=== PATIENT | male | born 1950 | race Caucasian/White ===

== ENCOUNTER 2020-02-05 19:02 | Inpatient (IN) | payer OTHER, MEDICARE ==
[~2020-02-05] VITALS: Ht 172.7 cm; Wt 81.6 kg
[~2020-02-05 19:02] MED LIST: ALBIPROI INH; CALCAVITD PO; LISI5 PO; OMEP20ER PO; TERA5 PO; TRAM50 PO
[2020-02-05 19:47] LABS: BASOPHILS ABSOLUTE AUTO 0.03 K/mm3 (0.00-0.23); BASOPHILS PERCENT AUTO 0 % (0-2); EOSINOPHILS PERCENT AUTO 0 % (0-6); Hematocrit 32.2 % (37.0-53.0); IMMATURE GRAN ABSOLUTE AUTO 0.13 K/mm3 (0.00-0.10); IMMATURE GRAN PERCENT AUTO 1 % (0-1); LYMPHOCYTES ABSOLUTE AUTO 1.74 K/mm3 (0.84-5.20); LYMPHOCYTES PERCENT AUTO 11 % (21-46); MONOCYTES ABSOLUTE AUTO 1.51 K/mm3 (0.16-1.47); MONOCYTES PERCENT AUTO 10 % (4-13); Mean Corpuscular HGB 32.4 pg (26.0-34.0); Mean Corpuscular HGB Conc 34.2 g/dL (31.5-36.5); Mean Corpuscular Volume 95 fL (80-100); Mean Platelet Volume 9.3 fL (9.1-12.4); NEUTROPHILS ABSOLUTE AUTO 12.23 K/mm3 (1.96-9.15); NEUTROPHILS PERCENT AUTO 78 % (41-73); Platelet Count 172 K/mm3 (150-400); RDW Coefficient Variation 11.9 % (11.7-14.2); RDW Standard Deviation 41.2 fL (35.1-46.3); White Blood Cell Count 15.64 K/mm3 (4.00-11.30)
[2020-02-05] MEDS ORDERED: CHLO25B PO (19:57)
[2020-02-05] MEDS ORDERED: LEVSOD100 PO (19:57)
[2020-02-05] MEDS ORDERED: METO50 PO (19:58)
[2020-02-05] MEDS ORDERED: TAMS.4ER PO (19:59)
[2020-02-05 20:04] LABS: Creatine Kinase MB 19.1 ng/mL (0.0-3.6)
[2020-02-05 20:11] LABS: Creatine Kinase MB Index 1.4 (0.0-4.0)
[2020-02-05 20:13] LABS: Alanine Aminotransfer (ALT/SGP 29 U/L (12-78); Albumin, Blood 3.1 g/dL (3.4-5.0); Albumin/Globulin Ratio 1.1 (0.8-1.8); Alk Phos 50 U/L (50-136); Anion Gap 5 mmol/L (6-16); Aspartate Aminotrans (AST/SGOT 54 U/L (12-37); Bilirubin, Total 2.4 mg/dL (0.1-1.0); Blood Urea Nitrogen 57 mg/dL (8-24); Bun/Creatinine Ratio 12.1 (12.0-20.0); CO2, Blood 39 mmol/L (21-32); Calcium, Blood 13.8 mg/dL (8.5-10.1); Chloride, Blood 102 mmol/L (98-108); Creatinine, Blood 4.72 mg/dL (0.60-1.20); Globulin, Blood 2.7 g/dL (2.2-4.0); Glomerular Filtration Rate 13 (60-); Glucose, Blood 116 mg/dL (70-99); Potassium, Blood 3.3 mmol/L (3.5-5.5); Sodium, Blood 146 mmol/L (136-145); Total Protein, Blood 5.8 g/dL (6.4-8.2)
[2020-02-05 20:17] LABS: PCO2 Arterial 42.2 mmHg (35-45); PO2 Arterial 85.5 mmHg (80-100); pH Blood Arterial 7.56 (7.35-7.45)
[2020-02-05 20:26] LABS: Ethanol (Alcohol), Blood, Med <3 mg/dL
--- NOTE | 2020-02-05 21:15 | NUR ---
ADMIT PT ARRIVED TO ICU 10 AT 2049 VIA ER BED. PT IS INTUBATED AND SEDATED UPON ARRIVAL. VENT SETTINGS AC 14, TV 400, PEEP 5, FIO2 35%. PT WITH MINIMAL BROWN SECRETIONS FROM ETT. PT WITH [address]. PROTONIX INFUSING AT 10 ML/HR, SANDOSTATIN AT 25 ML/HR, AND PROPOFOL AT 25 MCG/KG/MIN. PT RESPONDS TO NOXIOUS STIMULI AND GAG IS PRESENT WITH SUCTION. OGT IN PLACE WITH DARK MAROON OUTPUT NOTED. MOONEY CATHETER FROM [facility] IN PLACE AT THIS TIME. YELLOW CLOUDY OUTPUT NOTED. SBW RESTRAINTS IN PLACE. NO FAMILY AT BEDSIDE. DAUGHTER AND SON IN [place] CALLED AND UPDATED TO PT CONDITION. THEY PLAN TO COME FROM [place] TOMORROW. VITAL SIGNS STABLE. WILL CONTINUE TO MONITOR.
[2020-02-05 21:46] LABS: PCO2 Arterial 44.4 mmHg (35-45); PO2 Arterial 69.3 mmHg (80-100); pH Blood Arterial 7.55 (7.35-7.45)
[2020-02-05 22:36] LABS: Source, Urine Catheter
--- NOTE | 2020-02-05 22:36 | NUR ---
DR NILA FANG HERE. UPDATED ON PT AND LABS. DR DOTSON TO PUT IN NEW ORDERS.
[2020-02-05 22:38] LABS: Bilirubin, Urine Neg (Neg); Blood, Urine 5+ (Neg); Glucose Qualitative, Urine Neg (Neg); Ketones, Urine 1+ (Neg); Leukocyte Esterase, Urine 3+ (Neg); Nitrite, Urine Neg (Neg); Protein, Urine 2+ (Neg); Urobilinogen, Urine NORM (Normal); pH, Urine 6.5 (5.0-8.0)
[2020-02-05 22:49] LABS: U Amphetamine Screen Not Detected; U Barbituate Screen Not Detected; U Benzodiazapine Screen DETECTED; U Buprenorphine Screen Not Detected; U Cannabinoids Screen Not Detected; U Cocaine Screen Not Detected; U Methadone Screen Not Detected; U Methamphetamine Screen Not Detected; U Opiates Screen Not Detected; U Oxycodone Screen Not Detected; U Phencyclidine Screen Not Detected; U Propoxyphene Screen Not Detected
[2020-02-05 22:50] LABS: Appearance, Urine Cloudy (Clear); Color, Urine Yellow (P-Yellow)
[2020-02-05 22:52] LABS: Bacteria Many /hpf; Squamous Epithelial Cells Not Seen /hpf (Few); White Blood Cells, Urine TNTC /hpf (0-5)
[2020-02-06 00:11] LABS: Hematocrit 32.8 % (37.0-53.0)
[2020-02-06 03:17] LABS: Hematocrit 27.7 % (37.0-53.0); Hemoglobin 9.6 g/dL (13.5-17.5); Mean Corpuscular HGB Conc 34.7 g/dL (31.5-36.5); Mean Corpuscular Volume 95 fL (80-100); Mean Platelet Volume 9.3 fL (9.1-12.4); Platelet Count 143 K/mm3 (150-400); RDW Coefficient Variation 11.9 % (11.7-14.2); RDW Standard Deviation 41.7 fL (35.1-46.3); Red Blood Cell Count 2.91 M/mm3 (4.30-5.90); White Blood Cell Count 12.15 K/mm3 (4.00-11.30)
[2020-02-06 03:39] LABS: Albumin, Blood 2.6 g/dL (3.4-5.0); Bilirubin, Total 1.4 mg/dL (0.1-1.0); Bun/Creatinine Ratio 12.7 (12.0-20.0); Calcium, Blood 12.1 mg/dL (8.5-10.1); Creatinine, Blood 4.97 mg/dL (0.60-1.20); Globulin, Blood 2.5 g/dL (2.2-4.0); Potassium, Blood 3.2 mmol/L (3.5-5.5); Total Protein, Blood 5.1 g/dL (6.4-8.2)
[2020-02-06 04:09] LABS: Creatine Kinase MB 8.8 ng/mL (0.0-3.6); Creatine Kinase MB Index 0.9 (0.0-4.0)
--- NOTE | 2020-02-06 05:55 | NUR ---
SHIFT SUMMARY NO ACUTE CHANGES THIS SHIFT. PT REMAINS INTUBATED AND SEDATED. VENT SETTINGS AC 14, TV 400, PEEP 5, FIO2 35%. VITAL SIGNS REMAIN STABLE. PT HYPERTENSIVE AT TIMES. PROPOFOL INFUSING AT 30 MCG/KG/MIN, PROTONIX 10 ML/HR, SANDOSTATIN 25 ML/HR, NS 150 ML/HR, AND NS TKO. OGT IN PLACE WITH THICK MAROON OUTPUT NOTED. MOONEY REMAINS IN PLACE WITH CLEAR YELLOW OUTPUT NOTED. SBW RESTRAINTS REMAIN IN PLACE. PT WITHDRAWS TO NOXIOUS STIMULI AND GRIMMACES WITH ORAL CARE. NO FAMILY AT BEDSIDE. WILL CONTINUE TO MONITOR AND REPORT OFF TO ONCOMING RN.
[2020-02-06 07:44] LABS: Hematocrit 28.7 % (37.0-53.0); Hemoglobin 9.8 g/dL (13.5-17.5)
--- NOTE | 2020-02-06 08:00 | NUR ---
CARE ASSUMED REPORT RECEIVED, CARE ASSUMED AT 0700 FROM JAVIER SALGADO. PT INTUBATED AND SEDATED. VITALS STABLE. PROPOFOL INFUSING FOR SEDATION. PT SHIVERING, TEMP STABLE. BLANKETS PLACED OVER PATIENT. WITHDRAWS TO PAIN IN ALL EXTREMITIES. PT'S JAW CLAMPED DOWN DURING ORAL CARE, BUT RELAXES WHEN PRESSURE IS APPLIED. SEE ICU FLOWSHEET FOR DRIPS. BILAT WRIST RESTRAINTS TO PROTECT LINES/TUBES.
--- NOTE | 2020-02-06 09:00 | NUR ---
DR. SWETHA POSADA TO BEDSIDE FOR ASSESSMENT. CONTINUE WITH CURRENT PLAN OF CARE, ADD ECHO.
--- NOTE | 2020-02-06 10:31 | NUR ---
DR. NILA DOTSON CALLED FOR UPDATED ON PATIENT. PLAN FOR SCOPE AT 1130. PT TO REMAIN INTUBATED UNTIL AFTER SCOPE.
--- NOTE | 2020-02-06 10:41 | NUR ---
Echocardiogram completed.
[2020-02-06 11:14] LABS: Base Excess Venous 12.1 mmol/L
[2020-02-06 11:19] LABS: Hematocrit 29.8 % (37.0-53.0); Hemoglobin 10.2 g/dL (13.5-17.5)
--- NOTE | 2020-02-06 11:22 | NUR ---
02/06/20 1122 Malgorzata Reynolds History, Chart, Medications and Allergies reviewed before start of procedure. MONITOR INTACT WITH CONTINUOUS PULSE OXIMETRY AND INTERMITTENT BP. 3-LEAD EKG REVIEWED WITH PHYSICIAN PRIOR TO START OF PROCEDURE. PT ON VENT, ON PROPOFOL DRIP. TRITATED BY COUNTER TENDER PRN.
[2020-02-06 12:25] LABS: CPK Creatine Kinase 912 U/L (39-308)
[2020-02-06 12:30] LABS: PCO2 Venous 55.8 mmHg (38-42); PO2 Venous 177 mmHg (38-42)
[2020-02-06 12:32] LABS: Bicarbonate Venous 32.4 mmol/L (24.0-30.0)
--- NOTE | 2020-02-06 13:23 | NUR ---
UPDATE SCOPE COMPLETE. SEE DR. DOTSON PROGRESS NOTE. PLAN FOR ABD ULTRASOUND. OCTREOTIDE DISCONTINUED. PT CONTINUES TO BE INTUBATED AND SEDATED. BP SOFT AFTER PROCEDURE, PROPOFOL TITRATED DOWN. OTHERWISE, VITALS STABLE.
--- NOTE | 2020-02-06 13:30 | NUR ---
DR. BELINDA TREVINO TO BEDSIDE FOR ASSESSMENT. DISCUSSED PT'S SHIVERING BEHAVIORS VERSES POSSIBLE POSTURING. PT CONTINUES TO WITHDRAW TO PAIN IN ALL EXTREMITIES AND GRIMACE WITH CARES. PER DR. TREVINO, PT DOES NOT APPEAR TO BE POSTURING. SEE MD PROGRESS NOTE.
--- NOTE | 2020-02-06 14:00 | NUR ---
IV STARTS/LAB DRAWS/MEDS PT'S VEINS EXTREMELY FRAGILE. 4 RN'S ATTEMPT TO GET IV START, WITH AND WITHOUT ULTRASOUND GUIDANCE. SUCCESSFUL START TO LEFT AC. MEDS GIVEN ONCE ACCESS AVAILABLE. LAB ALSO FINDING ACCESS DIFFICULT. LABS BLOOD PULLED FROM LEFT AC IV.
--- NOTE | 2020-02-06 15:12 | NUR ---
DR. TREVINO COMMUNICATION SPOKE WITH DR. TREVINO REGARDING PT'S PHOSPHOROUS LEVEL. PLAN TO WAIT FOR REPLACEMENT UNTIL THIS AFTERNOON'S CHEMISTRY COMES BACK.
[2020-02-06 15:45] LABS: Hematocrit 29.1 % (37.0-53.0); Hemoglobin 9.8 g/dL (13.5-17.5)
[2020-02-06 16:13] LABS: Bun/Creatinine Ratio 12.8 (12.0-20.0); Calcium, Blood 11.4 mg/dL (8.5-10.1); Creatinine, Blood 5.07 mg/dL (0.60-1.20); Potassium, Blood 3.4 mmol/L (3.5-5.5)
--- NOTE | 2020-02-06 16:23 | NUR ---
TUBE FEEDING VERIFIED WITH DR. DOTSON THAT NO X-RAY IS NEEDED TO CONFIRM PLACEMENT OF OG TUBE HE PLACED IT WITH CAMERA AT THE END OF SCOPE. TUBE FEEDS STARTED PER ORDERS.
--- NOTE | 2020-02-06 17:57 | NUR ---
MEDICATION RECONCILIATION/ADMISSION HISTORY/BLOOD CONSENT PRIOR TO PROCEDURE, DR. DOTSON PLACED PHONE CALL TO PT'S NEXT OF KIN, SHOAIB JACOB. PER DR. DOTSON, SHOAIB REQUEST ALL MEDICAL QUESTIONS BE DEFERRED TO HER SISTER WHO IS IN THE MEDICAL FIELD, LIZBETH WEIR AT [phone]. VERBAL CONSENT RECEIVED FOR BOTH PROCEDURE AND BLOOD CONSENT BY BOTH DR. DOTSON AND THIS RN. AT THE TIME, LIZBETH SAID SHE WOULD BE WILLING TO PROVIDE MEDICAL INFORMATION THAT SHE IS AWARE OF TO ASSIST IN COMPLETING ADMISSION INFORMATION, BUT SAYS SHE DOES NOT KEEP IN CLOSE CONTACT WITH THE PATIENT. CALL PLACED TO SHOAIB, PT'S NEXT OF KIN, LISETTE TO GET 2 RN WITNESS VERBAL RELEASE OF INFORMATION AND 2 RN WITNESS BLOOD CONSENT AND ALSO ATTEMPT TO GET ANY MEDICAL HISTORY FROM HER. NO ANSWER AND NO VOICEMAIL BOX SET UP.
--- NOTE | 2020-02-06 18:30 | NUR ---
CONVERSATION WITH PT'S FRIEND PT'S FRIEND SARAH HUERTA CALLED TO GET UPDATE ABOUT PATIENT. INFORMED HER THAT I DO NOT HAVE PERMISSION TO GIVE OUT INFORMATION. SHE WAS UNDERSTANDING, BUT WANTED TO PROVIDE SOME MEDICAL HISTORY REGARDING THE PATIENT. SHE WAS CONCERNED BECAUSE THE PATIENT HAS TAKEN LARGE DOSES OF CALCIUM AT HOME BECAUSE HE THOUGHT HE NEEDED IT AND THAT HE HAS DONE THIS BEFORE. WILL UPDATE ADMISSION HISTORY WITH INFORMATION PROVIDED FROM SARAH HUERTA.
--- NOTE | 2020-02-06 18:30 | NUR ---
FAMILY COMMUNICATION - NEXT OF KIN - CONSENT FORMS ABLE TO REACH PT'S NEXT OF KIN, SHOAIB AT [phone]. PROVIDED HER WITH UPDATE. PER SHOAIB, CONTINUE TO PROVIDE UPDATES TO LIZBETH, PT'S DAUGHTER WHO IS IN THE MEDICAL FIELD. ALSO RECEIVED CONSENT TO SPEAK TO SIVAKUMAR IF SHE CALLS. CONSENT FOR BLOOD ADMINISTRATION. SEE PAPER CHARTING FOR CONSENT FORMS. SHOAIB HAD NO ADDITIONAL INFORMATION TO ADD TO ADMISSION HISTORY BEYOND WHAT PT'S FRIEND SARAH HUERTA KNEW.
--- NOTE | 2020-02-06 19:30 | NUR ---
SUMMARY SEE PREVIOUS NOTES FOR UPDATES. NEUROLOGICALLY, PT HAS CONSISTENTLY WITHDRAWN TO PAIN IN ALL EXTREMITIES AND GRIMACES AND PULLS AWAY TO ORAL CARE AND ADL'S. PT INTERMITTENTLY SHIVERS BUT RESOLVES WITH INCREASED SEDATION WELL WARM BLANKETS. TEMP HAS BEEN STABLE. ATTEMPT TO TITRATE DOWN SEDATION TO ASSESS NEURO STATUS BUT PT BECOMES HYPERTENSIVE AND DOES NOT TOLERATE. OTHERWISE, BP HAS BEEN STABLE. HR STABLE. VENT SETTINGS UNCHANGED. PT TOLERATING VENT WELL. GOOD OUTPUT FROM MOONEY. NO BOWEL MOVEMENT. TOLERATING FEEDS WELL WITH NO RESIDUAL. BILAT WRIST RESTRAINTS THROUGHOUT DAY TO PREVENT SELF EXTUBATION.
--- NOTE | 2020-02-06 19:32 | NUR ---
BEDSIDE REPORT TO JAVIER DIAZ TO ASSUME CARE
--- NOTE | 2020-02-06 20:30 | NUR ---
INITIAL ASSESSMENT PATIENT INTUBATED AND SEDATED. PATIENT RESPONDS TO PAINFUL STIMULI WITH FACIAL GRIMACING AND MOVEMENT OF ALL EXTREMITIES. + GAG AND COUGH REFLEXES. NO SWALLOW NOTED. PATIENT APPEARS TO SHIVER OCCASIONALLY. PATIENT HAS TEMP OF 99.7 DEGREES FAHRENHEIT. EYES FIXED. PUPILS 2+ IN SIZE, REACT BRISKLY TO LIGHT. SCLERA YELLOWED, EDEMA NOTED. PATIENT SATTING 90% AND GREATER ON AC 14, TV 400, PEEP 5, AND 30% FIO2. LUNGS CLEAR IN UPPER LOBES AND DIMINISHED IN LOWER LOBES. PATIENT HAS OCCASIONAL COUGH. NO SECRETIONS NOTED WITH SUCTIONING. PATIENT IN SR, HR IN THE 70S. SBP 1-TEENS TO 170S. TRACE EDEMA NOTED TO EXREMITIES. SCDS IN PLACE. ABDOMEN MODERATELY DISTENDED, SOFT, WITH NORMOACTIVE BS NOTED. PIVOT 1.5 INFUSING AT 20 MLS/ HOUR WITH 30 ML H20 FLUSH Q4H. TF GOAL RATE OF 40 MLS/ HOUR. RESIDUAL OF 180 MLS OBTAINED AND REINSTILLED. RESIDUAL BROWN IN COLOR. DATE OF LAST BM UNKNOWN. MOONEY IN PLACE, DRAINING LIGHT YELLOW COLORED URINE WITH SEDIMENT NOTED. SKIN FLUSHED AND DRY. ABRASIONS NOTED TO BLES. SCATTERED TATTOOS T/O. PROPOFOL INFUSING AT 40 MCG/ KG/ MINUTE, 30 MM KPHOS AT 102 MLS/ HOUR AND NSKCL AT 125 MLS/ HOUR. BED LOW, CALL LIGHT IN REACH. WILL CONTINUE TO MONITOR PATIENT FREQUENTLY THROUGHOUT SHIFT.
[2020-02-06 20:59] LABS: Hematocrit 29.8 % (37.0-53.0)
--- NOTE | 2020-02-06 21:57 | NUR ---
SPOKE TO DR. TREVINO AND INFORMED OF REPEAT LABS AND REPLACEMENTS INFUSING. INFORMED OF CONTINUED HTN. INFORMED THAT PATIENT DOES HAVE PRN ORDER FOR METOPROLOL DRIP. ORDERS RECEIVED FOR SCHEDULED AND PRN METOPROLOL. WILL CONTINUE TO MONITOR.
--- NOTE | 2020-02-07 00:30 | NUR ---
PATIENT REMAINED INTUBATED AND SEDATED. PATIENT ON 35 MCG/ KG/ MINUTE OF PROPOFOL. PATIENT REMAINS RESPONDING TO PAINFUL STIMULI. PATIENT NOW AFEBRILE. PATIENT REMAINS SATTING 90% AND GREATER ON SAME VENT SETTINGS. BP LABILE. BP SOFT AFTER SCHEDULED PO LOPRESSOR GIVEN. SBP RANGING FROM 80S TO 170S. HR 60S TO 80S. RESIDUAL OF 250 MLS OBTAINED AND REINSTILLED. TF INCREASED TO GOAL RATE OF 40 MLS/ HOUR. BLOOD SUGAR OF 96. NO OTHER ACUTE CHANGES TO NOTE ON AT THIS TIME. WILL CONTINUE TO MONITOR.
[2020-02-07 04:21] LABS: Base Excess Venous 6.8 mmol/L; Bicarbonate Venous 30.1 mmol/L (24.0-30.0); PCO2 Venous 37.8 mmHg (38-42); PO2 Venous 60.9 mmHg (38-42); pH Blood Venous 7.51 (7.34-7.37)
[2020-02-07 04:48] LABS: BASOPHILS ABSOLUTE AUTO 0.02 K/mm3 (0.00-0.23); BASOPHILS PERCENT AUTO 0 % (0-2); EOSINOPHILS ABSOLUTE AUTO 0.19 K/mm3 (0.00-0.68); EOSINOPHILS PERCENT AUTO 2 % (0-6); Hematocrit 28.5 % (37.0-53.0); Hemoglobin 9.5 g/dL (13.5-17.5); IMMATURE GRAN ABSOLUTE AUTO 0.05 K/mm3 (0.00-0.10); IMMATURE GRAN PERCENT AUTO 1 % (0-1); LYMPHOCYTES ABSOLUTE AUTO 2.15 K/mm3 (0.84-5.20); LYMPHOCYTES PERCENT AUTO 20 % (21-46); MONOCYTES ABSOLUTE AUTO 1.01 K/mm3 (0.16-1.47); MONOCYTES PERCENT AUTO 9 % (4-13); Mean Corpuscular HGB 33.1 pg (26.0-34.0); Mean Corpuscular HGB Conc 33.3 g/dL (31.5-36.5); Mean Platelet Volume 9.8 fL (9.1-12.4); NEUTROPHILS ABSOLUTE AUTO 7.48 K/mm3 (1.96-9.15); NEUTROPHILS PERCENT AUTO 69 % (41-73); Platelet Count 148 K/mm3 (150-400); RDW Coefficient Variation 12.2 % (11.7-14.2); RDW Standard Deviation 44.3 fL (35.1-46.3); Red Blood Cell Count 2.87 M/mm3 (4.30-5.90)
[2020-02-07 04:49] LABS: Mean Corpuscular Volume 99 fL (80-100)
--- NOTE | 2020-02-07 05:00 | NUR ---
PROPOFOL PLACED ON SB FOR OVER AN HOUR. PATIENT OPENING EYES SPONTANEOUSLY BUT FAILS TO FOLLOW ANY SIMPLE COMMANDS. PATIENT DID PASS WEAN. PATIENT BACK ON AC SETTINGS. MODERATE AMOUNT OF THICK, BROWN SPUTUM BEING SUCTIONED FROM THE ETT. PATIENT SHIVERING CONTINUOUSLY WHEN SEDATION OFF. PATIENT DIAPHORETIC. TEMP OF 100.2 DEGREES FAHRENHEIT THIS AM. HR 60S TO 80S. SBP UP TO 213 WITH SEDATION VACATION. PATIENT GIVEN PRN LOPRESSOR. TF RESIDUAL OF 270 MLS. 250 MLS REINSTILLED. TF PLACED ON HOLD FOR TIME BEING. PATIENT BACK ON PROPOFOL AT 20 MCG/ KG/ MINUTE.
[2020-02-07 05:06] LABS: Albumin, Blood 2.5 g/dL (3.4-5.0); Albumin/Globulin Ratio 0.9 (0.8-1.8); Bilirubin, Total 0.7 mg/dL (0.1-1.0); Bun/Creatinine Ratio 13.4 (12.0-20.0); Calcium, Blood 10.4 mg/dL (8.5-10.1); Creatinine, Blood 4.99 mg/dL (0.60-1.20); Globulin, Blood 2.8 g/dL (2.2-4.0); Magnesium, Blood 2.4 mg/dL (1.6-2.4); Phosphorus, Blood 2.7 mg/dL (2.5-4.9); Potassium, Blood 3.7 mmol/L (3.5-5.5); Total Protein, Blood 5.3 g/dL (6.4-8.2)
--- NOTE | 2020-02-07 06:37 | NUR ---
SHIFT SUMMARY PATIENT REMAINED INTUBATED. PATIENT REMAINED ON PROPOFOL FOR SEDATION BESIDES DURING AM SEDATION VACATION AND WEAN. PATIENT RESPONDING TO PAINFUL STIMULI WHEN SEDATED. PATIENT UNABLE TO FOLLOW SIMPLE COMMANDS WHEN OFF OF SEDATION. PATIENT OFF SEDATION FOR OVER AN HOUR. PATIENT LOCALIZING MOVEMENTS TO ALL EXTREMITIES. PATIENT SHIVERS OCCASIONALLY WHEN ON SEDATION AND SHIVERS CONSTANTLY WHEN SEDATION ON SB. PATIENT HAD TMAX OF 100.2 DEGREES FAHRENHEIT. PATIENT GIVEN PRN FENTANYL FOR SIGNS OF PAIN. PATIENT PASSED WHEN THIS AM. OTHERWISE PATIENT SATTED 90% AND GREATER ON AC 14, TV 400, PEEP 5 AND 30% FIO2. MODERATE AMOUNT OF THICK, BROWN SECRETIONS BEING SUCTIONED FROM ETT AT END OF SHIFT. PATIENT REMAINED IN SR, HR 60S TOS 80S. BP LABILE. SBP 80S TO 213. SBP HIGHEST WHEN ON SEDATION VACATION. BP SOFT AFTER SCHEDULED LOPRESSOR GIVEN FOR SBP 160S TO 170S. PATIENT DID NOT HAVE BM THIS SHIFT. TF INCREASED TO GOAL RATE OF 40 MLS/ HOUR. TF WAS PLACED ON HOLD FOR A LITTLE OVER AN HOUR FOR HIGH RESIDUALS. RESIDUALS RANGED FROM 180 TO 270 MLS THIS SHIFT. MOONEY DRAINED ADEQUATE AMOUNT OF LIGHT YELLOW URINE WITH SEDIMENT NOTED. PATIENT DIAPHORETIC THIS AM. PATIENT REPOSITIONED THROUGHOUT SHIFT. PROPOFOL CURRENTLY AT 30 MCG/ KG/ HOUR, NS KCL AT 125 MLS/ HOUR. PATIENT RECEIVING ROCEPHIN FOR ANTIBIOTIC. PATIENT HAD COMPLETE BED BATH THIS SHIFT. PATIENT APPEARS COMFORTABLE AT THIS TIME. BED LOW, CALL LIGHT IN REACH. WILL BE GIVING REPORT TO ONCOMING DAY SHIFT NURSE SHORTLY.
--- NOTE | 2020-02-07 08:00 | NUR ---
CARE ASSUMED REPORT RECEIVED, CARE ASSUMED AT 0700 FROM JAVIER DIAZ. PT INTUBATED AND SEDATED. WITHDRAWS TO PAIN BUT DOES NOT FOLLOW ANY COMMANDS. GAG AND COUGH PRESENT. OPENS EYES SPONTANEOUSLY ON OCCASION. PT CONTINUES TO INTERMITTENTLY SHIVER. LOW GRADE FEVER PRESENT. PT PROVIDED WITH COOL WASHCLOTH ON FACE. BP/HR STABLE. 02 SAT 90'S ON AC 14/400/30/5. TF AT GOAL, SEE I/O FOR RESIDUALS. BOWEL SOUNDS ACTIVE. NO BM AT THIS TIME. MOONEY SECURED AND DRAINING.
--- NOTE | 2020-02-07 08:35 | NUR ---
HEAD CT RESULTS FROM [place] ATTEMPTED TO LOCATE PT'S HEAD CT THAT WAS COMPLETED IN [facility]. CALLED RADIOLOGY AND WAS TOLD THE DISC IS HERE BUT CAN'T BE UPLOADED UNTIL SATURDAY, SO IF THE PHYSICIAN WANTS TO VIEW THEY NEED TO GO DOWN. NO REPORT AVAILABLE. CALLED [facility], SPOKE WITH JASPREET IN ER WHO SAID THE REPORT REMARKED ON ATROPHY AND CHRONIC SINUS SYNDROME. SAID SHE WILL FAX REPORT OVER. WILL PLACE ON CHART.
--- NOTE | 2020-02-07 08:41 | NUR ---
DR. TREVINO COMMUNICATION UPDATED DR. 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 PER DR. TREVINO, KEEP PATIENT ON SEDATION UNTIL SHE IS ABLE TO ASSESS AND MAKE PLAN.
--- NOTE | 2020-02-07 09:28 | NUR ---
DR. SWETHA VICTOR TO BEDSIDE FOR ASSESSMENT. D/C PRN METOPROLOL DRIP AND CONTINUE WITH PO AND PUSHES PRN. OTHERWISE, NO NEW ORDERS AT THIS TIME.
--- NOTE | 2020-02-07 09:54 | NUR ---
DR. BELINDA TREVINO TO BEDSIDE FOR ASSESSMENT. PT TURNED TO PRESSURE SUPPORT BY DR. TREVINO. PROPOFOL TO 15 MCG/KG/MIN PER DR. TREVINO REQUEST. FENTANYL FOR PAIN, METOPROLOL FOR ELEVATED BLOOD PRESSURE.
--- NOTE | 2020-02-07 14:33 | NUR ---
UPDATE SPOKE WITH DR. TREVINO REGARDING PT'S PERSISTENT HYPERTESION. EXPLAINED THAT IT IMPROVES TEMPORARILY AFTER PAIN MEDICATION ADMINISTRATION BUT DOES NOT STAY NORMAL. NEW ORDER FOR HYDRALAZINE, AND PER DR. TREVINO IF HYPERTENSION CONTINUES OK TO INCREASE PROPOFOL TO 30 MCG/KG/HR IN ADDITION TO FENTANYL WHILE PT ON SPONATENOUS IF PATIENT TOLERATES. IF NOT, OK TO PUT PT BACK ON ASSIST CONTROL SETTINGS.
--- NOTE | 2020-02-07 14:40 | NUR ---
UPDATE REGARDLESS OF PAIN MEDICATION, HYDRALAZINE AND METOPROLOL, PT CONTINUES TO BE HYPERTENSIVE. PT MUCH MORE AWAKE, LOOKING AROUND ROOM, AND MOVES ARMS/LEGS SPONTANEOUSLY. FOLLOWING SOME COMMANDS. PROPOFOL INCREASED TO 25 MCG/KG/MIN DUE TO PERSISTENT HYPERTENSION. RT JUAN NOTIFIED OF PLAN AND WILL CONTINUE TO CLOSELY MONITOR PT'S RATE AND TIDAL VOLUMES AND ASSESS FOR NEED TO BE PLACED BACK ON ASSIST CONTROL.
--- NOTE | 2020-02-07 16:31 | NUR ---
VENT SETTINGS PT PLACED BACK ON ASSIST CONTROL AC 16/30/5 BY RESPIRATORY THERAPIST PER DR. BELINDA HARRIS.
--- NOTE | 2020-02-07 18:54 | NUR ---
SUMMARY SEE PREVIOUS NOTES FOR UPDATES THROUGHOUT DAY. PT NOT ABLE TO CONSISTENTLY FOLLOW COMMANDS, AND BP CONTINUES TO BE LABILE, BUT IMPROVES MOST SIGNIFICANTLY WITH PAIN MANAGEMENT. PT BACK ON ASSIST CONTROL AND SEDATED WITH PROPOFOL AT 35 MCG/KG/KR AND BP MUCH IMPROVED. OTHERWISE, VITALS STABLE. GOOD OUTPUT FROM MOONEY TODAY. TOLERATING TUBE FEEDS, SEE I/O FOR RESIDUALS. ABD SOFT. BOWEL SOUNDS HYPOACTIVE. NO BOWEL MOVEMENT TODAY. BILAT WRIST RESTRAINTS TO PREVENT SELF-EXTUBATION. PT NOTED TO HAVE INCREASED SPONTANEOUS MOVEMENT WITH REPOSITIONING, REACHING FOR ETT, BUT WEAK OVERALL. REPORT TO JAVIER DIAZ TO ASSUME CARE AT THIS TIME.
--- NOTE | 2020-02-07 20:15 | NUR ---
INITIAL ASSESSMENT PATIENT INTUBATED AND ON SEDATION. PATIENT RESPONDS TO PAINFUL STIMULI AND NURSING CARE WITH FACIAL GRIMACING AND SLIGHT MOVEMENT OF ALL EXTREMITIES. + GAG AND COUGH. NO SWALLOW NOTED. SCERA YELLOWED AND EDEMEATOUS. DOLL'S EYES NOTED. PATIENT HAS NO SIGNS OF PAIN AT THIS TIME. PATIENT HAS TEMP OF 100.0 DEGREES FAHRENHEIT. PATIENT SATTING 90% AND GREATER ON VENT SETTINGS OF AC 14, TV 400, PEEP 5, AND 30% FIO2. LUNGS CLEAR IN UPPER LOBES, DIMINISHED IN LOWER LOBES. PATIENT HAS OCCASIONAL COUGH, PRODUCING MODERATE AMOUNTS OF THICK, BROWN SPUTUM. PATIENT IN SR, HR IN THE 80S. SBP 1-TEENS TO 180S. TRACE EDEMA NOTED TO BLES. 1+ EDEMA NOTED TO BILAT HANDS. SCDS IN PLACE. ABODMEN MODERATELY DISTENDED, SOFT, WITH NORMOACTIVE BS NOTED. OG IN PLACE. PIVOT 1.5 TF INFUSING AT GOAL RATE OF 45 MLS/ HOUR WITH 30 ML H20 FLUSH Q4H. 70S MLS RESIDUAL OBTAINED AND REINSTILLED. DATE OF LAST BM UNKNOWN. MOONEY IN PLACE DRAINING YELLOW COLORED URINE WITH SEDIMENT NOTED. SCATTERED TATTOOS NOTED. SKIN FLUSHED AND DRY. ABRASION NOTED TO BLES. ULCER NOTED TO TONGUE. ETT BEING REPOSITIONED Q2H WHEN TURNED. PROPOFOL INFUSING AT 35 MCG/ KG/ MINUTE, 1/2 NS INFUSING AT 100 MLS/ HOUR. BED LOW, CALL LIGHT IN REACH. PATIENT APPEARS COMFORTABLE AT THIS TIME. WILL CONTINUE TO MONITOR PATIENT FREQUENTLY THROUGHOUT SHIFT.
--- NOTE | 2020-02-08 | NUR ---
PATIENT REMAINS INTUBATED AND ON SEDATION. PATIENT AFEBRILE. BLOOD SUGAR OF 96. HR 60S TO 70S. BP STABLE. RESIDUAL OF 160 OBTAINED AND REINSTILLED. NO OTHER ACUTE CHANGES TO NOTE ON AT THIS TIME. PATIENT APPEARS WITHOUT PAIN OR DISCOMFORT. WILL CONTINUE TO MONITOR.
[2020-02-08 04:36] LABS: Bun/Creatinine Ratio 16.5 (12.0-20.0); Calcium, Blood 9.2 mg/dL (8.5-10.1); Creatinine, Blood 4.25 mg/dL (0.60-1.20); Magnesium, Blood 2.3 mg/dL (1.6-2.4); Phosphorus, Blood 1.9 mg/dL (2.5-4.9); Potassium, Blood 3.3 mmol/L (3.5-5.5)
[2020-02-08 04:40] LABS: Thyroid Stimulating Hormone 0.755 uIU/mL (0.360-4.800)
--- NOTE | 2020-02-08 05:35 | NUR ---
SEDATION PLACED ON STANDBY FOR SEDATION VACATION AND WEAN. VSS. TF RESIDUAL OF 100 MLS OBTAINED AND REINSTILLED. NO OTHER ACUTE CHANGES TO NOTE ON AT THIS TIME.
[2020-02-08 06:08] LABS: HBSAG SCREEN Negative (Negative); HEP B CORE AB, TOT Negative (Negative); HEP C VIRUS AB <0.1 (0.0-0.9)
--- NOTE | 2020-02-08 06:57 | NUR ---
SHIFT SUMMARY PATIENT REMAINED INTUBATED AND SEDATED. PATIENT REMAINED RESPONDING TO VERBAL OR PAINFUL STIMULI. PATIENT HAD HOUR LONG SEDATION VACATION THIS AM; PATIENT DID NOT FOLLOW COMMANDS OR TRACK WITH EYES WHEN OFF SEDATION. PATIENT DID PASS AM WEAN. PATIENT HAD TMAX OF 100.0 DEGREES FAHRENHEIT. PATIENT GIVEN PRN FENTANYL FOR SIGNS OF PAIN. PATIENT REMAINED SATTING 90% AND GREATER ON AC 14, TV 400, PEEP 5, FIO2 30%. SPUTUM THICK AND BROWN AT BEGINNING OF SHIFT. SPUTUM HAS BECOME MORE THIN AND CLEAR THIS AM. PATIENT REMAINED IN SR, HR 60S TO 80S. SBP LOW 100S TO 180S. PATIENT GIVEN PRN LOPRESSOR OT THIS AM DURING SEDATION VACATION. NO BM THIS SHIFT. TF REMAINS AT GOAL. RESIDUALS 70 TO 160 MLS. MOONEY DRAINED LARGE AMOUNT OF YELLOW URINE WITH SEDIMENT NOTE. NO CHANGE IN SKIN. PATIENT REPOSITIONED T/O SHIFT. PROPOFOL INFUSING AT 20 MCG/ KG/ MINUTE. PATIENT HAD BED BATH THIS SHIFT. 30 MM K PHOS INFUSING FOR POTASSIUM OF 3.3 AND PHOS OF 1.9 THIS AM. NO SIGNS OF DISCOMFORT AT THIS TIME. BED LOW, CALL LIGHT IN REACH. REPORT WILL BE GIVEN TO [facility] DAY SHIFT NURSE SHORTLY.
[2020-02-08 07:41] LABS: BASOPHILS ABSOLUTE AUTO 0.02 K/mm3 (0.00-0.23); BASOPHILS PERCENT AUTO 0 % (0-2); EOSINOPHILS ABSOLUTE AUTO 0.41 K/mm3 (0.00-0.68); EOSINOPHILS PERCENT AUTO 4 % (0-6); IMMATURE GRAN ABSOLUTE AUTO 0.05 K/mm3 (0.00-0.10); IMMATURE GRAN PERCENT AUTO 1 % (0-1); LYMPHOCYTES PERCENT AUTO 16 % (21-46); MONOCYTES PERCENT AUTO 9 % (4-13); Mean Corpuscular HGB Conc 32.1 g/dL (31.5-36.5); Mean Platelet Volume 10.4 fL (9.1-12.4); NEUTROPHILS ABSOLUTE AUTO 6.82 K/mm3 (1.96-9.15); NEUTROPHILS PERCENT AUTO 70 % (41-73); Platelet Count 146 K/mm3 (150-400); RDW Coefficient Variation 12.3 % (11.7-14.2); RDW Standard Deviation 46.3 fL (35.1-46.3); Red Blood Cell Count 2.73 M/mm3 (4.30-5.90)
[2020-02-08 07:42] LABS: Mean Corpuscular Volume 103 fL (80-100)
[2020-02-08 07:53] LABS: Albumin, Blood 2.3 g/dL (3.4-5.0); Albumin/Globulin Ratio 0.8 (0.8-1.8); Bilirubin, Direct 0.4 mg/dL (0.0-0.3); Bilirubin, Indirect 0.2 mg/dL (0.1-0.7); Bilirubin, Total 0.6 mg/dL (0.1-1.0); Globulin, Blood 2.9 g/dL (2.2-4.0); Total Protein, Blood 5.2 g/dL (6.4-8.2)
--- NOTE | 2020-02-08 09:35 | NUR ---
CARE ASSUMED REPORT RECEIVED, CARE ASSUMED AT 0700 FROM JAVIER DIAZ. PT INTUBATED AND SEDATED. INITIALLY, PT WITHDRAWING TO PAIN ONLY. TURNED PROPOFOL DOWN TO 10 MCG/KG/MIN, AND WITHIN AN HOUR PATIENT OPENING EYES, LOOKING AROUND, FOLLOWING COMMANDS WITH BOTH LEFT AND RIGHT HANDS. PT IS PROFOUNDLY WEAK. PT DOES NOT ANSWER YES/NO QUESTIONS. TREMOR NOTED, BUT OTHERWISE UNABLE TO ASSESS FULL CIWA. HOWEVER, PT HYPERTENSIVE, DOES NOT IMPROVE WITH FENTANYL OR HYDRALAZINE. PT HAS BEEN MINIMALLY RESPONSIVE SINCE ARRIVAL TO [facility], HESITANT TO RE-SEDATE PATIENT WITH PROPOFOL OR GIVE ATIVAN FOR POTENTIAL ETOH WITHDRAW SO THAT NEURO STATUS CAN BE ESTABLISHED PT DOING WELL RESPIRATORY GREY AND MAY BE POSSIBLE CANDIDATE FOR EXTUBATION ONCE FOLLOWING COMMANDS, PER DR. TREVINO YESTERDAY. SPOKE WITH DR. CLAYTON, THE LEAF TIER FOR THE DAY, AND PLAN FOR ASSESSMENT LATER TODAY WHEN AVAILABLE. PT RESEDATED WITH PROPOFOL. BLOOD PRESSURE IMPROVED AFTER RE-SEDATED. CUSHION MAKER HAND SHOWS NORMAL SINUS RHYTHM WITH RATE IN 60'S-70'S. LOW GRADE FEVER PRESENT. PT TOLERATING TUBE FEEDS, SEE I/O FOR RESIDUALS. ABD TENDER BUT SOFT WITH PALPATION, INCREASED GRIMACE NOTED. BILAT WRIST RESTRAINTS TO PREVENT SELF EXTUBATION PT DOES REACH TOWARDS TUBE DURING TURNS.
--- NOTE | 2020-02-08 13:04 | NUR ---
DR. MATILDE CLAYTON TO BEDSIDE FOR ASSESSMENT. PT SEDATED AT TIME OF ASSESSMENT. DISCUSSED NEURO STATUS, HYPERTENSION, BOWEL SOUNDS, POSSIBLE CIWA AND PAIN MANAGEMENT. PER DR. CLAYTON, KEEP PATIENT SEDATED TODAY. REPEAT WEAN AND SEDATION VACATION TOMORROW PER USUAL ON EPIC CUPID ANALYST AND WHEN DAY SHIFT TOMORROW HAS PT ON SEDATION VACATION, HE WANTS TO BE NOTIFIED FOR ASSESSMENT AT THAT TIME. NURSING NOTIFY ORDER PLACED.
--- NOTE | 2020-02-08 18:30 | NUR ---
SUMMARY SINCE PREVIOUS NOTE, PT HAS REMAINED INTUBATED AND SEDATED. VENT SETTINGS UNCHANGED. RR 20'S, SPO2 90'S. PT HAS HAD LARGE AMOUNT OF THICK, HAZEL MUCOUS SECRETIONS DRIPPING FROM NOSE. SUCTIONED AT LEAST EVERY HOUR THROUGHOUT DAY. SPOKE WITH DR. CLAYTON, ORDER TO SEND FOR BACTERIAL CULTURE. WILL COLLECT WHEN ADEQUATE SPECIMEN AVAILABLE. LARGE AMOUNT OF CLEAR ORAL AND ETT SECREETIONS ALSO SUCTIONED. PT CONTINUES TO WITHDRAW TO PAIN, MOVES HEAD BACK AND FORTH WITH ORAL CARE. ORAL CAVITY CONTINUES TO HAVE FOUL ODOR AND ULCERATION, FREQUENT REPOSITIONING OF ETT. BLOOD PRESSURE STABLE WITH PER TUBE METOPROLOL. PT HAS REQUIRED MUCH LESS FENTANYL TODAY. HR STABLE IN 70'S-80'S. CONTINUES WITH LOW GRADE FEVER. TUBE FEED CONTINUES, RESIDUALS MINIMAL. INCREASED FLUSH FOR ELEVATED SODIUM PER DR. CLAYTON. NO BOWEL MOVEMENT TODAY. GOOD OUTPUT FROM MOONEY CATHETER. SEE ASSESSMENTS/FLOWSHEETS.
--- NOTE | 2020-02-08 19:24 | NUR ---
REPORT TO JAVIER ESPARZA TO ASSUME CARE
--- NOTE | 2020-02-08 21:27 | NUR ---
ASSUMED CARE OF PT AT 1900. BEDSIDE REPORT DONE, PT UNABLE TO PARTICIPATE HE IS INTUBATED, SEDATED. NO FAMILY PRESENT. I-TRACE PERFORMED, FLUIDS INFUSING THROUGH RIGHT UA, MOONEY DRAINING, PATENT, SECURED. VENT SETTINGS AC 14/ TV 400/ PEEP 5/ 30% FIO2. RT TURNED FIO2 DOWN TO 25%, PT TOLERATING WELL.
[2020-02-09 03:47] LABS: Hematocrit 28.5 % (37.0-53.0); Hemoglobin 9.3 g/dL (13.5-17.5); Mean Corpuscular HGB 32.7 pg (26.0-34.0); Mean Corpuscular HGB Conc 32.6 g/dL (31.5-36.5); Mean Platelet Volume 9.7 fL (9.1-12.4); Platelet Count 190 K/mm3 (150-400); RDW Coefficient Variation 12.3 % (11.7-14.2); RDW Standard Deviation 45.5 fL (35.1-46.3); Red Blood Cell Count 2.84 M/mm3 (4.30-5.90); White Blood Cell Count 9.77 K/mm3 (4.00-11.30)
[2020-02-09 03:48] LABS: Mean Corpuscular Volume 100 fL (80-100)
[2020-02-09 04:04] LABS: BAND PERCENT MAN 1 % (0-8); BASOPHILS PERCENT MAN 0 % (0-2); Bun/Creatinine Ratio 19.3 (12.0-20.0); Calcium, Blood 9.1 mg/dL (8.5-10.1); Creatinine, Blood 3.73 mg/dL (0.60-1.20); EOSINOPHILS ABSOLUTE MAN 0.48 K/mm3 (0.00-0.68); EOSINOPHILS PERCENT MAN 5 % (0-6); LYMPHOCYTES ABSOLUTE MAN 2.14 K/mm3 (0.84-5.20); LYMPHOCYTES PERCENT MAN 22 % (21-46); MONOCYTES ABSOLUTE MAN 0.58 K/mm3 (0.16-1.47); MONOCYTES PERCENT MAN 6 % (4-13); Magnesium, Blood 2.2 mg/dL (1.6-2.4); NEUTROPHILS ABSOLUTE MAN 6.54 K/mm3 (1.96-9.15); Phosphorus, Blood 2.8 mg/dL (2.5-4.9); Potassium, Blood 3.6 mmol/L (3.5-5.5); SEG NEUTROPHILS PERCENT MAN 66 % (41-73); TOTAL CELLS COUNTED 100
[2020-02-09 05:23] LABS: PCO2 Arterial 39.9 mmHg (35-45); pH Blood Arterial 7.47 (7.35-7.45)
--- NOTE | 2020-02-09 05:48 | NUR ---
Wean trial attempted. Pt opens eyes spontaneously, and moves limbs, but does not follow commands. Pt's blood pressures also began to creep up. After trial, pt began fighting vent and grimacing, dose fentanyl given to good effect. Stool softeners given to pt, but no increase in bowel sounds and no flatus. Pt vent settings now AC 14/ tv 400/ peep 5/ fio2 25%.
--- NOTE | 2020-02-09 08:30 | NUR ---
ASSESSMENT- PT SEDATED WITH PROPOFOL AT 25 MCG/KG/MIN. MINIMAL RESPONSE TO VERBAL STIMULUS, ABLE TO MOVE FEET MIMINALLY TO COMMANDS. ORALLY INTUBATED, TUBE SECURE. COPIOUS ORAL SECRETIONS. LUNGS CLEAR. NSR, BP STABLE. PIV X 4 INTACT. NS TKO X 2 FOR IVPB. TUBE FEEDING VIA NGT INTACT-RESIDUAL 100 CC-REPLACED. UO VIA MOONEY. SCDS ON. REPOSITIONED. BILATERAL WRIST RESTRAINTS TO MAINTAIN LIFE SUPPORT TUBE, DOES REACH UP FOR TUBE.
--- NOTE | 2020-02-09 10:15 | NUR ---
PROPOFOL ON HOLD FOR POSSIBLE EXTUBATION. NO DISTRESS. TOLERATING CPAP
--- NOTE | 2020-02-09 11:33 | NUR ---
PT WITH EYES OPEN, BLINKS EYES IN RESPONSE TO VERBAL COMMANDS, WEAKLY MOVES EXTEMITIES. WILL CONTINUE TO MONITOR FOR EXTUBATION PARAMETERS. TOLERATING CPAP 10/5 WITH GOOD TIDAL VOLUMES WITH RATE OF 28 BPM. BP IMPROVED AFTER RX WITH HYDRALAZINE AND LOPRESSOR. LUNGS COARSE, THICK SECRETIONS SUCTIONED FROM ETT-SPUTUM SENT. COPIOUS ORAL SECRETIONS.
--- NOTE | 2020-02-09 14:00 | NUR ---
PT REMAINS LETHARGIC, OPENS EYES, QUESTIONABLE RESPONSE TO ANY DIRECTIONS. TOLERATING CPAP SETTINGS ON VENT. COPIOUS ORAL SECRETIONS
--- NOTE | 2020-02-09 16:30 | NUR ---
PT GRIMACING, RX WITH PAIN MEDICATION WITH IMPROVEMENT. NSR. NEURO-OPENS EYES TO VERBAL STIMULUS, UNABLE TO SQUEEZE HANDS. KEEPS EXTREMITIES STIFF. BATH DONE, LINEN CHANGE. TOLERATING TUBE FEEDING
[2020-02-09 17:01] LABS: Bun/Creatinine Ratio 20.4 (12.0-20.0); Calcium, Blood 8.6 mg/dL (8.5-10.1); Creatinine, Blood 3.28 mg/dL (0.60-1.20); Potassium, Blood 3.3 mmol/L (3.5-5.5)
--- NOTE | 2020-02-09 19:18 | NUR ---
LABS REPORTED TO DR CLAYTON. PT AWAKE, NEURO UNCHANGED. NSR. BP IMPROVED AFTER MEDS
--- NOTE | 2020-02-09 20:00 | NUR ---
ASSUMPTION OF CARE: PT VENTED, NOT SEDATED. EYES WILL OPEN WITH VERBAL STIMULI. ABLE TO WIGGLE TOES AND SQUEEZE WITH L HAND. 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 IN SR. PT IS HYPERTENSIVE WITH SBP IN THE 150-170S. HR IN THE 80S. VENT SETTINGS ARE 14/400/PEEP 5/ FIO2 25%. SPO2 >90%. PT HAS MOD AMT OF THICK, HAZEL SECRETIONS. OGT IN PLACE WITH CONTINUOUS TF IN PLACE. ZERO RESIDUAL AT THIS TIME. TF AT GOAL RATE. PT HAS 4 PIV-BILAT AC AND BUA. AC IVS INF. BUA IVS PATENT AND SL. D5NS INF AT 75MLS/HR. WILL CONTINUE TO MONITOR
[2020-02-10 03:28] LABS: BASOPHILS ABSOLUTE AUTO 0.03 K/mm3 (0.00-0.23); BASOPHILS PERCENT AUTO 0 % (0-2); EOSINOPHILS ABSOLUTE AUTO 0.74 K/mm3 (0.00-0.68); EOSINOPHILS PERCENT AUTO 7 % (0-6); Hematocrit 29.6 % (37.0-53.0); Hemoglobin 9.6 g/dL (13.5-17.5); IMMATURE GRAN ABSOLUTE AUTO 0.05 K/mm3 (0.00-0.10); IMMATURE GRAN PERCENT AUTO 1 % (0-1); LYMPHOCYTES ABSOLUTE AUTO 1.87 K/mm3 (0.84-5.20); LYMPHOCYTES PERCENT AUTO 19 % (21-46); MONOCYTES ABSOLUTE AUTO 0.97 K/mm3 (0.16-1.47); MONOCYTES PERCENT AUTO 10 % (4-13); Mean Corpuscular HGB 32.5 pg (26.0-34.0); Mean Corpuscular HGB Conc 32.4 g/dL (31.5-36.5); Mean Corpuscular Volume 100 fL (80-100); Mean Platelet Volume 9.2 fL (9.1-12.4); NEUTROPHILS ABSOLUTE AUTO 6.47 K/mm3 (1.96-9.15); NEUTROPHILS PERCENT AUTO 64 % (41-73); Platelet Count 202 K/mm3 (150-400); RDW Coefficient Variation 12.7 % (11.7-14.2); RDW Standard Deviation 46.3 fL (35.1-46.3); Red Blood Cell Count 2.95 M/mm3 (4.30-5.90); White Blood Cell Count 10.13 K/mm3 (4.00-11.30)
[2020-02-10 03:46] LABS: Albumin, Blood 2.3 g/dL (3.4-5.0); Albumin/Globulin Ratio 0.6 (0.8-1.8); Bilirubin, Total 0.5 mg/dL (0.1-1.0); Bun/Creatinine Ratio 19.9 (12.0-20.0); Calcium, Blood 8.3 mg/dL (8.5-10.1); Creatinine, Blood 3.17 mg/dL (0.60-1.20); Globulin, Blood 3.7 g/dL (2.2-4.0); Magnesium, Blood 1.9 mg/dL (1.6-2.4); Phosphorus, Blood 2.8 mg/dL (2.5-4.9); Potassium, Blood 3.3 mmol/L (3.5-5.5)
--- NOTE | 2020-02-10 04:55 | NUR ---
CALL PLACED TO DR TURNER RE POTASSIUM LEVEL 3.3 AND SODIUM LEVEL 153. ORDERS RECEIVED FOR KCL 40MEQ IV X 1.
[2020-02-10 05:28] LABS: PCO2 Arterial 36.9 mmHg (35-45); PO2 Arterial 70.5 mmHg (80-100); pH Blood Arterial 7.48 (7.35-7.45)
--- NOTE | 2020-02-10 06:21 | NUR ---
SUMMARY: PT RESTED MAJORITY OF NIGHT. PROPOFOL WAS RESTARTED AT 2014 AND TITRATED UP TO 25MCG. PT TOLERATED WELL. A SEDATION VACATION AND WEAN WAS PERFORMED. PROPOFOL WAS TURNED OFF AND RT CAME TO BEDSIDE TO WEAN. PT TOLERATED BOTH WELL. PER RT HE WAS ABLE TO SQUEEZE HANDS. PROPOFOL IS CURRENTLY BACK ON AT 25MCG. LUNG SOUNDS COARSE. PT STILL HAVING MODERATE AMT OF SECRETIONS. SPO2 >90%. PT SBP 100-120 MAJORITY OF SHIFT. DURING WEAN SBP UP TO 170S. OGT IN PLACE WITH CTF AT GOAL. PT HAS 4 PIVS. D5W INFUSING AT 75MLS/HR. MOONEY IN PLACE DRAINING CLEAR YELLOW URINE. WILL PASS REPORT TO ONCMING SHIFT
--- NOTE | 2020-02-10 07:36 | NUR ---
ASSUMED CARE OF PATIENT. SEDATED. VENT SETTINGS: AC 14 400 PEEP 5 25% FIO2, TOLERATING WELL. PROPOFOL PLACED ON STAND BY FOR SEDATION VACATION. HOB @ 30 DEGREES. ETT 8.0, CANNOT SEE MARKINGS AT TEETH.
--- NOTE | 2020-02-10 09:57 | NUR ---
PT SUCCESSFULLY EXTUBATED AT 0947, PLACED ON 2 L/MIN NC. ALERT, FOLLOWING DIRECTIONS. RESTRAINTS REMOVED AT 0948. EDUCATED PT TO DEEP BREATHE AND COUGH, USE SUCTION FOR SECRETIONS, AND HOW TO USE CALL LIGHT, TO KEEP MOVING ARMS. NODDED UNDERSTANDING.
--- NOTE | 2020-02-10 10:38 | NUR ---
PT ON 2 L/MIN NC, LUNGS LESS COARSE THAT PRIOR ASSESSMENT, PROD COUGH BUT IS SWALLOWING SECRETIONS. O2 SAT 97%, RR 22-28. KNOWS HIS NAME AND , BUT IS UNAWARE OF HIS LOCATION. VOICE IS HOARSE. WILL DO BEDSIDE SWALLOW EVAL SOON PT'S VOICE IS CLEARER.
--- NOTE | 2020-02-10 11:36 | NUR ---
RATE OF IVF INCREASED TO 100 ML/HR PER ORDER.
--- NOTE | 2020-02-10 13:11 | NUR ---
REASSESSMENT: PT ALERT, ORIENTED TO SELF AND BIRTHDAY. VOICE IS HOARSE. SPRAY MACHINE LOADER COUGH, O2 @ 2 L/MIN NC WITH SATS > 92%. ENCOURAGING HIM TO COUGH OFTEN. ALL IV'S ARE EITHER INFILTRATED OR OUT DATED; TRIED TWICE, UNABLE TO PLACE, ASKED ANOTHER RN TO START NEW IV. SMALL SMEAR OF STOOL. GOOD URINE OUTPUT. SKIN IS INTACT. SINUS RHYTHM, HR 80'S, HYPERTENSIVE 170-190/80-90'S, UNABLE TO GIVE LABETOLOL AT THIS TIME. WILL ATTEMPT SWALLOW EVAL.
--- NOTE | 2020-02-10 13:49 | NUR ---
TITRATED OXYGEN OFF, MAINTAINING O2 SAT > 92%. SPOKE TO DR. CLAYTON IN PERSON, RECEIVED VERBAL ORDER FOR BD PROTOCOL FOR BILATERAL UPPER LOBE WHEEZING.
--- NOTE | 2020-02-10 16:15 | NUR ---
REASSESSMENT: PT ALERT, KNOWS NAME AND , STILL UNSURE OF HIS LOCATION OR HOW HE GOT HERE. VOICE STILL HOARSE, RN BEDSIDE SWALLOW EVAL NOT ATTEMPTED PT'S ATTENTION WANDERS AND HE EXHIBITED NO REAL SWALLOW REFLEX WITH ORAL CARE OR MOUTH SWABS. LUNGS CTAB, FAINT EXP WHEEZES IN BILAT LL. ON ROOM AIR, ENCOURAGED TO COUGH DURING RN ROUNDING. SCD'S ON, IS RESISTANT TO POSITION CHANGES, BECOMES QUITE RIGID AND PUSHES AGAINST THE SIDE RAILS. MOONEY DRAINING ADEQUATE URINE. DENIED PAIN.
--- NOTE | 2020-02-10 18:10 | NUR ---
SHIFT SUMMARY: REMAINS ALERT, BUT STATED HE IS TIRED. IS HYPERTENSIVE; LABETOLOL IV GIVEN AFTER NEW IV PLACED, DR. CLAYTON ORDERED CLONIDINE PATCH, WHICH WAS PLACED ON HIS L UPPER ARM. WANTS TO GET OOB; TOLD HIM THAT HE IS WEAK AND I WOULD LIKE TO HAVE PT AND OT WORK WITH HIM FIRST; VERBALIZED UNDERSTANDING. T MAX 100.1, RESOLVED WITHOUT INTERVENTION. BILATERAL UPPER EXTREMITIES HAVE JERKING MOTIONS AT TIMES, NOT TREMULOUS. DENIES DOUGHERTY, A/V HALLUCINATIONS, PAIN. REMAINS NPO. WOULD BENEFIT FROM PT/OT, PERHAPS STATUS CHANGE TOMORROW.
--- NOTE | 2020-02-10 20:00 | NUR ---
ASSUMPTION OF CARE: PT AWAKE IN ROOM. ORIENTED TO NAME, , AND IS ABLE TO STATE HE IS IN THE HOSPITAL. SPEECH IS SLOW AND SLURRED. HE APPEARS TO BE HALLUCINATING. DENIES PAIN AT THIS TIME. HE IS FEBRILE WITH A TEMP OF 100.0. HYPERTENSIVE WITH SBP IN THE 150-170S. PT HAS CLONIDINE PATCH TO R SHOULDER. PT EXTUBATED DURING DAYSHIFT AND IS CURRENTLY ON RA. SPO2 >90%. LUNG SOUNDS ARE SLIGHTLY WHEEZY. OGT IS OUT, BUT PT IS NPO D/T CONFUSION. MOONEY IN PLACE DRAINING CLEAR YELLOW URINE. POWERGLIDE IN RUSS INFUSING WITH D5W. BED IN LOWEST POSITION. WILL CONTINUE TO MONITOR
[2020-02-11 03:36] LABS: BASOPHILS ABSOLUTE AUTO 0.03 K/mm3 (0.00-0.23); BASOPHILS PERCENT AUTO 0 % (0-2); EOSINOPHILS ABSOLUTE AUTO 0.77 K/mm3 (0.00-0.68); EOSINOPHILS PERCENT AUTO 7 % (0-6); Hematocrit 28.2 % (37.0-53.0); Hemoglobin 9.3 g/dL (13.5-17.5); IMMATURE GRAN ABSOLUTE AUTO 0.05 K/mm3 (0.00-0.10); IMMATURE GRAN PERCENT AUTO 0 % (0-1); LYMPHOCYTES ABSOLUTE AUTO 1.69 K/mm3 (0.84-5.20); LYMPHOCYTES PERCENT AUTO 15 % (21-46); MONOCYTES ABSOLUTE AUTO 1.17 K/mm3 (0.16-1.47); MONOCYTES PERCENT AUTO 10 % (4-13); Mean Corpuscular HGB 32.9 pg (26.0-34.0); Mean Corpuscular Volume 100 fL (80-100); Mean Platelet Volume 8.9 fL (9.1-12.4); NEUTROPHILS ABSOLUTE AUTO 7.53 K/mm3 (1.96-9.15); NEUTROPHILS PERCENT AUTO 67 % (41-73); Platelet Count 211 K/mm3 (150-400); RDW Coefficient Variation 12.3 % (11.7-14.2); RDW Standard Deviation 45.1 fL (35.1-46.3); Red Blood Cell Count 2.83 M/mm3 (4.30-5.90); White Blood Cell Count 11.24 K/mm3 (4.00-11.30)
[2020-02-11 03:52] LABS: Bun/Creatinine Ratio 19.6 (12.0-20.0); Calcium, Blood 7.8 mg/dL (8.5-10.1); Creatinine, Blood 2.6 mg/dL (0.60-1.20); Magnesium, Blood 1.6 mg/dL (1.6-2.4); Phosphorus, Blood 2.9 mg/dL (2.5-4.9); Potassium, Blood 3.3 mmol/L (3.5-5.5)
--- NOTE | 2020-02-11 05:51 | NUR ---
CALL PLACED TO DR TURNER RE K+ LAB VALUE OF 3.3. AWAITING RETURN CALL.
--- NOTE | 2020-02-11 05:56 | NUR ---
ORDERS RECEIVED FROM DR. TURNER TO REPLACE K+ WITH KCL 40MEQ IV X1 NOW.
--- NOTE | 2020-02-11 06:10 | NUR ---
SHIFT SUMMARY: PT SLEPT ON AND OFF T/O SHIFT. WHILE AWAKE HE WAS OCCASIONALLY HALLUCINATING (STATED AT ONE POINT HE WAS TRYING TO CATCH A SPIDER HE WAS SEEING) AND CONFUSED. OTHERWISE PT HAS BEEN ABLE TO STATE NAME, , AND THAT HE IS IN THE HOSPITAL . IN SR. PT HYPERTENSIVE T/O SHIFT. HYDRALAZINE GIVEN WITH LITTLE EFFECT. LABETOLOL GIVEN WITH GOOD EFFECT. SBP INITIALLY DROPPED TO 120S. IS CURRENTLY IN THE 170S. ANOTHER DOSE OF LABETOLOL GIVEN AT 0620. WILL REASSESS. PT ALSO HAS CLONIDINE PATCH TO R UPPER ARM. HR HAS STAYED IN THE 80S. REMAINS NPO D/T CONFUSION. PT HAD A SMALL BM. MOONEY IN PLACE DRAINING CLEAR, YELLOW URINE. ABOUT 1850 ML OUT. POWERGLIDE IN RUSS INFUSING WITH D5W AT 100MLS/HR. WILL PASS REPORT TO ONCOMING SHIFT.
--- NOTE | 2020-02-11 09:30 | NUR ---
ATTEMPTED BEDSIDE SWALLOW EVAL. PT ABLE TO MAINTAIN ATTENTION AND REMAINED UPRIGHT AT 90 DEGREES FOR THE TEST. ABLE TO SWALLOW WATER BY THE TEASPOON, BUT WAS UNABLE TO HOLD CUP AND RAISE IT TO HIS LIPS TO DRINK CONTINUOUSLY. IS TREMULOUS AND HAS POOR FINE MOTOR SKILLS IN BOTH HANDS. WILL NOTIFY PROVIDER DURING ROUNDS. PT IS CURRENTLY NPO.
--- NOTE | 2020-02-11 12:18 | NUR ---
PHYSICAL THERAPY IN TO WORK WITH PATIENT.
--- NOTE | 2020-02-11 13:40 | NUR ---
SPOKE TO PT'S DAUGHTER CESARIO, GAVE UPDATE ON PT CONDITION AND ADVISED THAT PT IS NOW MEDICAL STATUS AND WILL BE TRANSFERRED TO MEDICAL FLOOR WHEN BED BECOMES AVAILABLE. SHE ASKED ABOUT D/C PLANNING. PT LIVES ALONE IN A TRAILER AND SHE STATED THAT SHE AND HER SISTER HAVE BEEN VERY WORRIED ABOUT HIM LIVING ALONE. ADVISED HER THAT D/C PLANNING WILL BE WORKING WITH HIM WHEN HE GETS CLOSER TO D/C.
--- NOTE | 2020-02-11 13:58 | NUR ---
AUGUSTINE FROM [facility] HERE FOR RUDY RODRIGUEZ.
--- NOTE | 2020-02-11 15:12 | NUR ---
NOTIFIED PCU LINE BUILDER THAT PT IS NOW MEDICAL TELE STATUS FOR REMOTE MONITORING PURPOSES.
--- NOTE | 2020-02-11 15:14 | NUR ---
[facility].
--- NOTE | 2020-02-11 17:04 | NUR ---
REPORT GIVEN TO Venu SEVERINO ON MEDICAL FLOOR. PT TRANSPORTED VIA HIS BED TO ROOM 345 AT 1645. BELONGINGS WITH PT; TOLD RECEIVING RN THAT PT'S WALLET, HOME MEDICATIONS, AND WATCH ARE IN THE PAPER BAG, SEALED WITH ETTA AND LABELED WITH PT LABEL. PT'S EYEGLASSES ARE WITH HIM.
--- NOTE | 2020-02-11 17:07 | NUR ---
SHIFT SUMMARY ICU TRANSFER THIS EVENING. PATIENT DENIES PAIN, NAUSEA, AND SHORTNESS OF BREATH. PATIENT SETTLED INTO ROOM AND WATCHING TV AT THIS TIME. CALL LIGHT IN REACH.
--- NOTE | 2020-02-12 04:37 | NUR ---
ACCESS LEAD SUMMARY Patient average around 14 on CIWA Scale while awake. 2mg ativan IV given for score of 17, when patient was really bothered with hallucinations. Patient actually slept for approx 3 hours. Still tremulouw, and hallucinating, patient is now questioning everything he sees. (which is very upsetting to him). Strong dry barking cough4-5 times every hour. Patient is not wearing 02, or we would add humidity to sooth his throat. will pass on concern to day RN.
[2020-02-12 09:52] LABS: Hemoglobin 9.6 g/dL (13.5-17.5); Mean Corpuscular HGB 32.1 pg (26.0-34.0); Mean Corpuscular HGB Conc 33.1 g/dL (31.5-36.5); Mean Corpuscular Volume 97 fL (80-100); Mean Platelet Volume 8.8 fL (9.1-12.4); Platelet Count 232 K/mm3 (150-400); RDW Coefficient Variation 12.1 % (11.7-14.2); Red Blood Cell Count 2.99 M/mm3 (4.30-5.90)
[2020-02-12 10:08] LABS: Bun/Creatinine Ratio 19.4 (12.0-20.0); Calcium, Blood 7.4 mg/dL (8.5-10.1); Creatinine, Blood 2.16 mg/dL (0.60-1.20); Magnesium, Blood 2.3 mg/dL (1.6-2.4); Potassium, Blood 3.3 mmol/L (3.5-5.5)
--- NOTE | 2020-02-12 16:20 | NUR ---
SHIFT SUMMARY PATIENT DENIES PAIN, NAUSEA, AND SHORTNESS OF BREATH. PATIENT SEEN BY SPEECH, PT, AND OT. PATIENT'S DIET ADVANCED TO PUREE AND THICKENED LIQUIDS, MEDICATIONS CRUSHED. PATIENT ABLE TO BEAR WEIGHT WITH 2 ASSIST BUT IS STILL VERY UNSTEADY. PATIENT'S CIWA'S RANGING FROM 3-5 TODAY. CALL LIGHT IN REACH.
--- NOTE | 2020-02-13 03:50 | NUR ---
SHIFT SUMMARY ADMITTED FOR UGIB. FULL CODE. PHYSICAL THERAPY RECOMMENDS DC TO A SNF. PT IS WEAK AND SHAKEY TO STAND- 2 ASSIST. PT LIVES ALONE. A MOONEY IS IN PLACE FOR RETENTION. HE IS STILL HALLUCINATING THIS SHIFT. BUT HE CAN MAKE HIS NEEDS KNOWN AND CALLS APPROPRIATELY. TELEMETRY: NSR @ 97 BPM. CIWA SCORES RANGE 4-5 FOR ME. EYE-HAND COORDINATION PROBLEMS CAUSE HIM TO SPILL HIS CUPS. PUREE DIET, NECTAR THICK FLUIDS, MEDS CRUSHED IN APPLESAUCE. HX: COPD, PANCREATITIS, ETOH, HYPERNATREMIA, LIVER FAILURE, BPH, GOITER.
--- NOTE | 2020-02-13 15:18 | NUR ---
PATIENT HAD AN UNEVENTFUL SHIFT. VITALS HAVE BEEN STABLE. DENIES PAIN AND DISCOMFORT. MOONEY CONTINUES TO DRAIN TO GRAVITY. NO ACUTE CHANGES TO REPORT OF AT THIS TIME.
--- NOTE | 2020-02-14 03:39 | NUR ---
SHIFT SUMMARY A/O, ABLE TO MAKE NEEDS KNOWN. ELIM IRA. COOPERATIVE WITH CARE. CALLS AND ANSWERS QUESTIONS APPROPRIATELY. NO C/O PAIN/DISCOMFORT. APPEARED TO REST OFF AND ON. HAD SMALL BM THAT WAS HARD. PG TO RUSS FLUSHED; REMINDED TO KEEP ARM AT REST. MEDS CRUSHED IN APPLESAUCE; TOLERATED WELL. MOONEY SECURED AND DRAINING TO GRAVITY. NO ACUTE CHANGES NOTED OVERNIGHT. VSS. BED IN LOWEST POSITION; ALARM ON. CALL LIGHT AND BELONGINGS WITHIN REACH. WCTM.
--- NOTE | 2020-02-14 15:43 | NUR ---
THE PATIENT HAS BEEN PLEASANT WITHOUT ANY CONCERNS TO REPORT OF. HE WAS GIVEN 40MEQ OF PO POTASSIUM THIS MORNING D/T KCL LEVEL OF 3.3 AND FLOMAX IN HOPES TO EVENTUALLY REMOVE HIS MOONEY. THE PATIENTS VITALS ARE STABLE. HE CALLS FOR STAFF ASSIST NEEDED. WILL CONTINUE TO MONITOR AND PROVIDE CARE NEEDED.
--- NOTE | 2020-02-15 04:06 | NUR ---
SHIFT SUMMARY A/O, ABLE TO MAKE NEEDS KNOWN. COOPERATIVE WITH CARE. [place]UROK. CALLS AND ANSWERS QUESTIONS APPROPRIATELY. C/O DISCOMFORT WITH NAUSEA TO LOWER ABDOMEN; MEDICATED PER EMAR. ATTEMPTED TO HAVE A BM; NOT SUCCESSFUL. DID NOT APPEAR TO REST MUCH THIS SHIFT. MOONEY SECURED AND DRAINING TO GRAVITY. VSS/AFEBRILE. NO OTHER ACUTE CHANGES NOTED. BED REMAINS IN LOWEST POSITION; ALARM ON. CALL LIGHT AND BELONGINGS WITHIN REACH. WCTM. REPORT TO ONCOMING RN.
[2020-02-15 09:18] LABS: Bun/Creatinine Ratio 14.7 (12.0-20.0); Calcium, Blood 6.1 mg/dL (8.5-10.1); Creatinine, Blood 1.97 mg/dL (0.60-1.20); Potassium, Blood 3.4 mmol/L (3.5-5.5)
--- NOTE | 2020-02-15 12:37 | NUR ---
OX3, PLEASANT. FOLLOWS INSTRUCTIONS. 1 PERSON CGA FOR ADL'S. NO SIGNS OF BLEEDING. DENIES CP OR OTHER PAINS. SAYS NO DIZZINESS OR NAUSEA TODAY. NASAL SPRAY HAS BEEN STARTED FOR C/O HEAD CONGESTION. ORAL POTASSIUM HAS NIRAJ GIVEN FOR K+ LEVEL 3.4.
--- NOTE | 2020-02-15 16:32 | NUR ---
HE HAS BEEN WATCHING TV. HIS ONLY REQUEST IS A PEPSI WITH DINNER TONIGHT.
--- NOTE | 2020-02-15 18:41 | NUR ---
HE JUST SHOWERED. HE SAYS THE NASAL SPRAY HELPED HIM. NO OTHER COMPLAINTS TODAY.
--- NOTE | 2020-02-16 04:51 | NUR ---
SHIFT SUMMARY: VSS. TEMP 99.4-99.6. A/OX3. COMMUNICATES NEEDS. AMB W/ 1 ASSIST AND FWW. CONT OF STOOL. FC PATENT AND DRAINING CLEAR STRAW COLORED URINE. NO C/O PAIN. REPORTS ONGOING "SORE THROAT". TOLERATING PO INTAKE WELL. LARGE, SOFT BM TONIGHT. ABD SOFT, NONTENDER, NONDISTENDED. NO ACUTE CHANGES OVERNIGHT. WILL CONT TO MONITOR.
--- NOTE | 2020-02-16 13:53 | NUR ---
THE SERVICE CONSULTANT SPOKE WITH HIM ABOUT DISCHARGE PLANS. NOW HE SAYS HE FEELS LIKE HE'S HAVING A PANIC ATTACK. HE NEEDS ASSIST TO WALK FOR SAFETY. 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 HE NEEDED ME TO OPEN THE MOONEY TO DRAIN 2 HRS AND 20 MIN AFTER I CLAMPED IT. 250 MLS WERE DRAINED. I RE-CLAMPED AT 1220. WILL LEAVE IT CLAMPED FOR 3 HRS UNLESS HE GETS UNCOMFORTABLE AGAIN.
--- NOTE | 2020-02-16 14:19 | NUR ---
HE FEELS BETTER BECAUSE WE LOOKED AND FOUND HIS WALLET WITH HIS MEDICARE INFO.HE ALSO HAS HIS WATCH. WILL LOCK UP HIS WALLET IF HE DOES NOT GET DISCHARGED TO REHAB TODAY.
--- NOTE | 2020-02-16 17:00 | NUR ---
THE JOURNALISM TEACHER IS TRYING TO SET UP REHAB FOR PETER. NO BED AVAILABLE YET. SHE IS LOOKING OVER AT THE COAST AND HERE LOCALLY. WE FOUND TODAY THAT HIS WALLET IS HERE. IT IS SEALED IN AN ENVELOPE AND SECURITY WILL PICK IT UP TO PUT IN THE SAFE. BLADDER TRAINING WILL BE DONE AT DINNER TIME. AFTER DRAINING HIS BLADDER, I WILL DC HIS MOONEY. PG IS PATENT IN HIS RUSS. HE HAS NO COMPLAINTS OTHER THAN BEING ANXIOUS ABOUT HIS FUTURE.
--- NOTE | 2020-02-17 04:13 | NUR ---
SHIFT SUMMARY ASSUMED CARE PF PT AT 1900. PT IS A/O X3 BUT IS FORGETFUL AT TIMES, FOR EXAMPLE, PT FORGOT WHERE HIS PHONE AND WATCH WERE, PT C/O TINGLING IN HIS TOES, PT STATES THAT HE FORGETS TO MONTION IT TO DOCTORS AND HE ONLY FEELS IT WHEN HE IS SITTING DOWN AND RESTING. HEART SOUNDS IRREGULAR, LUNG SOUNDS CLEAR, PT DENIES CP/SOB AT THIS TIME. PT URINATED ABOUT 300CC TWICE TONIGHT, PT WAS CONTINET T/O THE NIGHT. PT SLEPT MOST OF THE NIGHT EXCEPT FOR WHEN HE AOKE WITH A DRY NOSE, MEDICATED PER EMAR. PT STATES THAT HE WANTS TO GO HOME BJ. CALL LIGHT IN REACH, BED IN LOWEST POSTION, WILL CONTINUE TO MONITOR UNTIL DAYSHIFT NURSE ARRIVES.
--- NOTE | 2020-02-17 08:15 | NUR ---
PT QUITE PLEASANT COOP A/O X3. REPORTS SOME FORGETFULNESS ON OCCATION. 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 H/R REG, NO MURMER NOTED. NO TELE. NO PACER NOTED. LUNGS CLEAR, RESP EASY, UNLABORED. ON R/A. TALKING FULL SENTENCES WITH EASE. BT X4 LAST BM THIS AM. VOIDS PER URINAL. STANDS TO URINATE . 1 ASST WITH FWW TO BATHROOM. BED IN LOW POSITIOIN, CALL LITE IN REACH, BED ALARM ON FOR IMPULSIVITY
[2020-02-17 08:28] LABS: Bun/Creatinine Ratio 13.1 (12.0-20.0); Creatinine, Blood 1.83 mg/dL (0.60-1.20); Potassium, Blood 3.6 mmol/L (3.5-5.5)
--- NOTE | 2020-02-17 17:35 | NUR ---
PT PLEASANT COOP TODAY. NO C/O PAIN. HAS BEEN COOP WITH PT/OT. PENDING SNF PLACEMENT. BED IN LOW POSITION, CALL LITE IN REACH, CALLS APPROP
--- NOTE | 2020-02-18 03:56 | NUR ---
BUSINESS UNIT LEADER SUMMARY PT A/O X3 WITH SOME FORGETFULNESS. DENIES PAIN, SOB, NAUSEA. VSS. NO ACUTE CHANGES. PLEASANT AND COOPERATIVE. USES BEDSIDE URINAL. CALL LIGHT WITHIN REACH. BED IN LOWEST POSITION.
[2020-02-18 17:11] LABS: BASOPHILS ABSOLUTE AUTO 0.03 K/mm3 (0.00-0.23); BASOPHILS PERCENT AUTO 0 % (0-2); EOSINOPHILS ABSOLUTE AUTO 0.19 K/mm3 (0.00-0.68); EOSINOPHILS PERCENT AUTO 1 % (0-6); Hematocrit 28.2 % (37.0-53.0); Hemoglobin 9.6 g/dL (13.5-17.5); IMMATURE GRAN ABSOLUTE AUTO 0.06 K/mm3 (0.00-0.10); IMMATURE GRAN PERCENT AUTO 0 % (0-1); LYMPHOCYTES ABSOLUTE AUTO 1.82 K/mm3 (0.84-5.20); LYMPHOCYTES PERCENT AUTO 10 % (21-46); MONOCYTES ABSOLUTE AUTO 1.08 K/mm3 (0.16-1.47); MONOCYTES PERCENT AUTO 6 % (4-13); Mean Corpuscular HGB 32.5 pg (26.0-34.0); Mean Corpuscular Volume 96 fL (80-100); Mean Platelet Volume 8.6 fL (9.1-12.4); NEUTROPHILS ABSOLUTE AUTO 14.91 K/mm3 (1.96-9.15); NEUTROPHILS PERCENT AUTO 82 % (41-73); Platelet Count 318 K/mm3 (150-400); RDW Coefficient Variation 12.4 % (11.7-14.2); RDW Standard Deviation 41.8 fL (35.1-46.3); Red Blood Cell Count 2.95 M/mm3 (4.30-5.90); White Blood Cell Count 18.09 K/mm3 (4.00-11.30)
--- NOTE | 2020-02-18 17:52 | NUR ---
SHIFT SUMMARY PT AWAKE AT START OF SHIFT, WATCHING TV. PER REPORT, PT A&O, BUT FORGETFUL. PT WAITING SNF PLACEMENT D/T LOW GRADE TEMP AT TIMES. PT'S TEMP THRU OUT THE DAY WNL'S, BUT THEN THIS AFTERNOON INCREASED; SEE CHART. PT BECOMING CHILLED WITH SHAKES AND COUGH, TEMP @ 102.8. ICE BAGS PLACED IN AXILLARY AND BEHIND NECK. DR ROME NOTIFIED. NEW ORDERS PLACED. PT UP OOB AND ABLE TO AMBULATE AROUND WITH PT/OT EARLIER TODAY AND LATER TO [facility] FOR CXR. LAB DRAW OBTAINED FROM PG IN [facility]. RESP PANEL OBTAINED AND SENT WELL UA. PT ABLE TO TAKE MEDS WHOLE WITH APPLESAUCE OR YOGURT. HX ETOH AND PANCREATITIS. PT HAS BEEN PLEASANT AND CO-OP, WATCHING TV. CALL LT IN REACH. ABLE TO MAKE NEEDS KNOWN.
[2020-02-18 18:04] LABS: Source, Urine Voided
[2020-02-18 18:32] LABS: Adenovirus Not Detected (NOT DETECT); Bordetella pertussis Not Detected (NOT DETECT); Chlamydophila pneumoniae Not Detected (NOT DETECT); Coronavirus 229E Not Detected (NOT DETECT); Coronavirus HKU1 Not Detected (NOT DETECT); Coronavirus NL63 Not Detected (NOT DETECT); Coronavirus OC43 Not Detected (NOT DETECT); Human Metapneumovirus Not Detected (NOT DETECT); Human Rhinovirus/Enterovirus Not Detected (NOT DETECT); Influenza A/2009-H1 Not Detected (NOT DETECT); Influenza A/H1 Not Detected (NOT DETECT); Influenza A/H3 Not Detected (NOT DETECT); Influenza B Not Detected (NOT DETECT); Mycoplasma pneumoniae Not Detected (NOT DETECT); Parainfluenza Virus 1 Not Detected (NOT DETECT); Parainfluenza Virus 2 Not Detected (NOT DETECT); Parainfluenza Virus 3 Not Detected (NOT DETECT); Parainfluenza Virus 4 Not Detected (NOT DETECT); Respiratory Syncytial Virus Not Detected (NOT DETECT)
[2020-02-18 18:39] LABS: Bilirubin, Urine Neg (Neg); Blood, Urine 1+ (Neg); Glucose Qualitative, Urine Neg (Neg); Ketones, Urine Neg (Neg); Leukocyte Esterase, Urine 3+ (Neg); Nitrite, Urine Pos (Neg); Protein, Urine 2+ (Neg); Urobilinogen, Urine NORM (Normal)
[2020-02-18 18:51] LABS: Appearance, Urine Hazy (Clear); Color, Urine Yellow (P-Yellow)
[2020-02-18 18:52] LABS: Bacteria Many /hpf; Red Blood Cells, Urine Rare /hpf (0-2); Squamous Epithelial Cells Not Seen /hpf (Few); White Blood Cells, Urine 50-100 /hpf (0-5)
--- NOTE | 2020-02-19 06:45 | NUR ---
02/19/20 0645 PT AWAKENED FOR AM MEDS. STATES HE SLEPT "OKAY" LAST NIGHT. DENIES ANY S/S OR DISCOMFORT. VITALS STABLE. UNEVENTFUL NIGHT.
--- NOTE | 2020-02-19 15:45 | NUR ---
Discharge Summary A/Ox2-3, pleasant and cooperative with care. Patient discharged to home, to transport. Escorted out via w/c by this RN, reviewed discharge paperwork and education with patient and at side, questions were answered. Personal belongings sent home. 's (Carly) cell phone number [phone]. Patient to call and schedule appointment with Urologist in [place] (Dr. Xavi Green). [facility] faxed to [facility]. Dr. Vega's office to call patient for outpatient perma-cath removal. Patient is discharged with miranda in place to be f/u by Urologist. IV removed, WNL.
--- NOTE | 2020-02-19 17:17 | NUR ---
Shift Summary A/Ox3, pleasant and cooperative with care. No c/o pain except for nasal congestion, medicated per EMAR. Able to make needs known. No new concerns. Will continue to monitor.
--- NOTE | 2020-02-20 04:53 | NUR ---
SHIFT SUMMARY MEDICATED FOR FEVER AT START OF SHIFT (100.1), SHORTLY AFTER PT C/O BL SHOULDER PAIN & GENERALLY "NOT FEELING WELL", FEVER & PAIN RESOLVED W/TYLENOL, PT STATED HE WAS FEELING BETTER BY BEDTIME, THIS AM PT REPORTS STILL FEELING BETTER & IS AFEBRILE, PT HAS BEEN A&O T/O SHIFT, ST BY ASSIST W/URINAL @ BEDSIDE, PT SLEEPING AT THIS TIME, CALL LIGHT IN REACH, BEDALARM ACTIVE, WILL CONT TO MONITOR UNTIL REPORT GIVEN TO DAY RN.
--- NOTE | 2020-02-20 17:26 | NUR ---
Shift Summary A/Ox3, calls appropriately. C/o neck pain 04/03, medicated with Tylenol with good results. Patient comfortably sitting in recliner, worked with physical therapy this afternoon. No other changes.
--- NOTE | 2020-02-21 04:25 | NUR ---
SHIFT SUMMARY PT HAS HAD NO ACUTE CHANGES THIS SHIFT, NO C/O ANY KIND, PT HAS BEEN AFEBRILE T/O SHIFT, SLEEPING AT THIS TIME, CALL LIGHT IN REACH, WILL CONT TO MONITOR UNTIL REPORT GIVEN TO DAY RN.
[2020-02-21 05:43] LABS: BASOPHILS ABSOLUTE AUTO 0.04 K/mm3 (0.00-0.23); BASOPHILS PERCENT AUTO 1 % (0-2); EOSINOPHILS ABSOLUTE AUTO 0.51 K/mm3 (0.00-0.68); EOSINOPHILS PERCENT AUTO 6 % (0-6); Hematocrit 26.1 % (37.0-53.0); Hemoglobin 8.9 g/dL (13.5-17.5); IMMATURE GRAN ABSOLUTE AUTO 0.02 K/mm3 (0.00-0.10); IMMATURE GRAN PERCENT AUTO 0 % (0-1); LYMPHOCYTES ABSOLUTE AUTO 2.29 K/mm3 (0.84-5.20); LYMPHOCYTES PERCENT AUTO 29 % (21-46); MONOCYTES ABSOLUTE AUTO 0.61 K/mm3 (0.16-1.47); MONOCYTES PERCENT AUTO 8 % (4-13); Mean Corpuscular HGB 32.8 pg (26.0-34.0); Mean Corpuscular HGB Conc 34.1 g/dL (31.5-36.5); Mean Corpuscular Volume 96 fL (80-100); Mean Platelet Volume 8.6 fL (9.1-12.4); NEUTROPHILS ABSOLUTE AUTO 4.51 K/mm3 (1.96-9.15); NEUTROPHILS PERCENT AUTO 57 % (41-73); Platelet Count 293 K/mm3 (150-400); RDW Coefficient Variation 13.1 % (11.7-14.2); RDW Standard Deviation 43.8 fL (35.1-46.3); Red Blood Cell Count 2.71 M/mm3 (4.30-5.90); White Blood Cell Count 7.98 K/mm3 (4.00-11.30)
--- NOTE | 2020-02-21 16:55 | NUR ---
CALCIUM/VITAMIN D PATIENT REQUESTING TO CONTINUE HOME MEDICATION CALCIUM. DISCUSS THIS WITH DR. DOAN, PER OK TO RESUME HOME MEDICATION.
[2020-02-21] MEDS ORDERED: CALCIUM 600 +1 EA11 PO (16:58)
--- NOTE | 2020-02-21 16:59 | NUR ---
Shift Summary A/Ox3. Patient c/o throat spasms and claims likely d/t low calcium as this has happened in the past. Calcium per lab results on 02/16 was 6.0. This was discussed and approved with Dr. Damico. Up in chair and back to bed for meals and comfort off buttocks, ambulated in hallway with FINAL TESTER x 1. No other complaints or concerns. Will continue to monitor.
--- NOTE | 2020-02-22 02:57 | NUR ---
SUMMARY: A/OX3, CALLS APPROPRIATELY AND SPECIFIES NEEDS. HE SLEPT MAJORITY OF SHIFT EXCEPT TO VOID, SBA W/FWW PROVIDED. PILLS TOLERATED IN APPLESAUCE, ASP PREC'S MAINTAINED. IV ABX RECIEVED FOR UTI THEN SL. PLACEMENT PENDING W/POSSIBLE D/C TODAY TO [facility]. HE'S DENIED PAIN/COMPLAINTS AND SAYS THROAT SPASMS SUBSIDED SINCE COMMENCING CALCIUM. NO ACUTE CHANGES, VSS/AFEBRILE. WCTM AND REPORT TO DAY RN.
--- NOTE | 2020-02-22 16:00 | NUR ---
PT. DISCHARGED TO VIA [facility]AN. REPORT CALLED TO RN. PT. WENT BY SECURITY AND PICKED HIS BELONGINGS IN THE SAFE.
== END 2020-02-22 15:57 | DRG 368 ==
LOC: ER 19:02 → ICUW 20:33 → MEDS 20:33 → ICUW 20:50 → MEDS 02-11 16:40
PROVIDERS: Emergency Medicine; Hospitalist; Internal Medicine; Internal Medicine Critical Care Medicine; Internal Medicine Gastroenterology; Internal Medicine Pulmonary Disease; ADMIT Internal Medicine
PROC: 0BH17EZ Insertion of Endotracheal Airway into Trachea, Via Natural or Artificial Opening (ICD-10-PCS; principal; 2020-02-05)
PROC: 5A1955Z Respiratory Ventilation, Greater than 96 Consecutive Hours (ICD-10-PCS; 2020-02-05)
PROC: 0W3P8ZZ Control Bleeding in Gastrointestinal Tract, Via Natural or Artificial Opening Endoscopic (ICD-10-PCS; 2020-02-06)
DX: K22.6 Gastro-esophageal laceration-hemorrhage syndrome (principal); G92 Toxic encephalopathy; N17.0 Acute kidney failure with tubular necrosis; I21.A1 Myocardial infarction type 2; A41.52 Sepsis due to Pseudomonas; J96.00 Acute respiratory failure, unspecified whether with hypoxia or hypercapnia; K85.20 Alcohol induced acute pancreatitis without necrosis or infection; N39.0 Urinary tract infection, site not specified; E87.2 Acidosis; F10.239 Alcohol dependence with withdrawal, unspecified; J44.9 Chronic obstructive pulmonary disease, unspecified; E78.5 Hyperlipidemia, unspecified; E03.9 Hypothyroidism, unspecified; K21.9 Gastro-esophageal reflux disease without esophagitis; F17.210 Nicotine dependence, cigarettes, uncomplicated; E87.6 Hypokalemia; R45.1 Restlessness and agitation; T68.XXXA Hypothermia, initial encounter; N18.3 Chronic kidney disease, stage 3 (moderate); R33.9 Retention of urine, unspecified; Y90.0 Blood alcohol level of less than 20 mg/100 ml; N40.0 Benign prostatic hyperplasia without lower urinary tract symptoms; I12.9 Hypertensive chronic kidney disease with stage 1 through stage 4 chronic kidney disease, or unspecified chronic kidney disease
CPT/HCPCS: 0099U; 31720; 36415; 36600; 51702; 71045; 71046; 76705; 80048; 80053; 80076; 81001; 82330; 82550; 82553; 82803; 82947; 83605; 83690; 83735; 83880; 84100; 84132; 84145; 84443; 84484; 85007; 85014; 85018; 85025; 85027; 86317; 86704; 86708; 86803; 86850; 86900; 86901; 87040; 87070; 87077; 87086; 87147; 87186; 87205; 87340; 90686; 92526; 92610; 93005; 93010; 93306; 94002; 94003; 94760; 96365; 96368; 97110; 97112; 97116; 97162; 97166; 97530; 97535; 99285-25; A9270; A9270-GY; C9113; G0008; G0480; J0171; J0360; J0696; J0713; J1430; J2060; J2250; J2354; J2405; J2704; J2765; J3010; J3411; J3475; J3480; J7030; J7050; J7060; J7070